=== PATIENT | female | born 1975 | race Two or more races ===

== ENCOUNTER 2023-05-03 22:18 | Emergency (ER) | payer OTHER ==
[~2023-05-03] VITALS: Ht 160 cm; Wt 68.3 kg
[2023-05-03 22:23] VITALS: BP 112/70; PULSE 116; RESP 14; TEMP 98; O2SAT 99
== END 2023-05-04 01:26 | disposition left against medical advice (07) ==
LOC: ER 22:43
DX: Z53.21 Procedure and treatment not carried out due to patient leaving prior to being seen by health care provider (principal)
CPT/HCPCS: 99281